=== PATIENT | male | born 2000 | race African-American/Black ===

== ENCOUNTER 2020-06-09 16:23 | Emergency (ER) | payer BC, SELFPAY ==
[2020-06-09 16:33] VITALS: BP 117/56; PULSE 82; RESP 16; TEMP 36.8; O2SAT 99
--- NOTE | 2020-06-09 17:02 | ED.GENADULT ---
HPI - General Adult General Chief complaint: Upper Respiratory Infection Stated complaint: SORE THROAT Time Seen by Provider: 06/09/20 17:02 Source: patient and RN notes reviewed Mode of arrival: ambulatory Limitations: no limitations History of Present Illness HPI narrative: 20-year-old -Nepalese male presents with complaints of sore throat, nasal congestion, fatigue, tongue feeling weird, and intermittent shortness of breath for the past 2 days. Ashkan reports that sore throat has been going on since with increased symptoms with redness, swelling, and pain today. Theraflu and cough drops without relief. No high fevers, drooling, neck or throat swelling. Pain is bilateral. Hurts to swallow. Exacerbation factors consist of eating and drinking. No rhinorrhea. Nasal congestion. No voice change. No nausea, vomiting, or abdominal pain. Tolerating liquids well. Denies chills, difficulty swallowing, jaw pain, dental pain, facial pain, foreign body sensation, and rash. Remains active. The patient reports he have not been diagnosed with COVID-19. The patient reports he is not waiting for the results of a COVID-19 lab test. The patient reports he do not have fever, weakness, or fatigue. The patient reports he do not have a new or worsening cough. Denies chest pain. The patient reports he do not have any rhinorrhea, congestion, loss of taste, and diarrhea. Denies recent traveling. Denies concerns for COVID-19 or exposures been home with limited outdoor exposure except for essential household needs and return home. At this time, patient is not suspected of having COVID-19. Some parts of this dictation were generated by voice recognition software and may contain typographical and/or grammatical inaccuracies. Related Data Allergies Allergy/AdvReac Type Severity Reaction Status Date / Time Penicillins Allergy Unknown BLISTERY Verified 06/09/20 16:31 RASH Review of Systems Review of Systems: Narrative: CONSTITUTIONAL: Denies fever, chills, sweats. Complains of fatigue. EYES: Denies visual changes, redness, discharge. ENT: Denies rhinorrhea, otalgia. Complains of sore throat, tongue feeling weird, congestion. CARDIOVASCULAR: Denies chest pain, palpitations, edema. RESPIRATORY: Denies wheezing, cough. Complains of intermittent dyspnea. GASTROINTESTINAL: Denies abdominal pain, nausea, vomiting, diarrhea. SKIN: Denies rash or itching. MUSCULOSKELETAL: Denies acute back pain, joint pain, or myalgia. NEUROLOGIC: Denies numbness or focal weakness. PSYCHIATRIC: Denies anxiety or depression. All systems reviewed & are unremarkable except as noted in HPI and below. [facility] Past Medical History Medical History (Updated 06/10/20 @ 00:00 by Corazon Streeter) No significant family history Surgical History Surgical History (Updated 06/09/20 @ 17:14 by BHARTI Loo) No significant past surgical history Family History Family History (Updated 06/09/20 @ 17:15 by BHARTI Loo) Father Alive and well Mother Alive and well Social History Social History (Updated 06/09/20 @ 17:15 by BHARTI Loo) Smoking status: Never smoker Tobacco type: cigarettes Second hand tobacco smoke exposure: No Alcohol intake: former Substance use: never Gender identity (if verbalized by the patient): Male Comments At time of signature, agree with nurse past medical, surgical, social, and family history. There is no relevant family history pertinent to the presenting complaint. Exam Narrative: Exam Narrative: GENERAL: This is a well-nourished, well-developed patient, in no apparent distress. Speaks in full sentences without deficits and ambulates with steady gait without dyspnea. HEAD: normocephalic, atraumatic. EYES: PERRL. Sclera clear/white. Vision is grossly intact. EARS: External ears normal, auditory canals clear and without drainage, TMs normal without perforation. Hearing grossly
== END 2020-06-09 17:30 | disposition home or self-care (01) ==
PROVIDERS: Emergency Provider Nurse Practitioner Family; PCP Student in an Organized Health Care Education/Training Program
DX: J02.9 Acute pharyngitis, unspecified (principal); Z20.828 Contact with and (suspected) exposure to other viral communicable diseases
CPT/HCPCS: 87081; 87804; 87880; 99203; G0463

== ENCOUNTER 2022-05-31 10:12 | Emergency (ER) | payer BC, SELFPAY ==
[2022-05-31 10:25] VITALS: BP 117/65; PULSE 93; RESP 16; TEMP 37.6; O2SAT 98
--- NOTE | 2022-05-31 10:43 | ED.URI ---
HPI - URI/Sore Throat General Chief Complaint: Upper Respiratory Infection Stated Complaint: SWOLLEN THROAT Time Seen by Provider: 05/31/22 10:44 History of Present Illness HPI Narrative: 08/30/2019 presented for complaint of sore throat, onset yesterday. Endorses pain is worse with eating. He also endorses he had an outbreak of cold sores all over his lips 2 days ago. He has been applying alcohol, they are now scabbing. Endorses he is able to speak, swallow secretions, and denies shortness breath or wheezing. Denies cough, nausea, vomiting, diarrhea, fever chills. Denies recent illness. Denies sick contacts. Related Data Allergies Allergy/AdvReac Type Severity Reaction Status Date / Time Penicillins Allergy Unknown BLISTERY Verified 05/31/22 10:21 RASH Review of Systems Review of Systems: CONSTITUTIONAL: Denies body aches, fever, chills, or sweats. EYES: Denies visual changes, redness, or discharge. ENT: Denies rhinorrhea, congestion, or otalgia. CARDIOVASCULAR: Denies chest pain, palpitations, or edema. RESPIRATORY: Denies dyspnea. GASTROINTESTINAL: Denies abdominal pain, nausea, vomiting, or diarrhea. MUSCULOSKELETAL: Denies back pain, joint pain, or myalgia. NEUROLOGIC: Denies headache PMFSH Past Medical History Medical History No significant family history Surgical History Surgical History No significant past surgical history Family History Family History Father Alive and well Mother Alive and well Social History Social History Smoking status: Never smoker Tobacco type: cigarettes Second hand tobacco smoke exposure: No Alcohol intake: former Substance use: never Gender identity (if verbalized by the patient): Male Sexual Orientation (if Verbalized by the Patient): Straight or Heterosexual Exam Narrative: GENERAL: Ill-appearing, no acute distress. EYES: conjunctivae clear ENT: Mucous membranes moist. TMs pearly duque with normal light reflex bilaterally; no tragal tenderness. Oropharynx erythematous without lesions. Tonsils enlarged 3+ without exudate. No drooling, no hoarseness, no trismus, uvula midline. No tripod positioning, hot potato voice, or soft palate swelling. 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 No lymphadenopathy CHEST: Clear to auscultation, breath sounds equal. No respiratory distress, speaks in full sentences. HEART: Regular rate and rhythm. No murmur heard. SKIN: Warm, dry, no rash. NEURO: Alert and oriented x3. Course Course Emergency Course: Patient is aware of diagnosis, understands and agrees to treatment plan. Anticipatory guidance given. Patient agrees to follow-up as directed and is aware of reasons to seek care at the emergency department. Portions of this record may have been created with voice recognition software Level of Care: Express Care Visit Vital Signs Vital signs: Vital Signs Temperature 99.6 F 05/31/22 10:25 Pulse Rate 93 05/31/22 10:25 Respiratory Rate 16 05/31/22 10:25 Blood Pressure 117/65 05/31/22 10:25 Pulse Oximetry 98 05/31/22 10:25 Temperature 99.6 F 05/31/22 10:25 Pulse Rate 93 05/31/22 10:25 Respiratory Rate 16 05/31/22 10:25 Blood Pressure 117/65 05/31/22 10:25 Pulse Oximetry 98 05/31/22 10:25 MDM - URI/Sore Throat MDM Narrative Medical decision making narrative: strep result reviewed with pt. will treat based on PE. PCN allergy. Advise supportive treatments and signs and symptoms to go to the ER. Patient is appropriate for outpatient treatment and follow-up. Differential Diagnosis Differential diagnosis: Likely upper respiratory infection, viral infection and pharyngitis
== END 2022-05-31 11:05 | disposition home or self-care (01) ==
PROVIDERS: Emergency Provider Nurse Practitioner Family
DX: J02.9 Acute pharyngitis, unspecified (principal); B00.1 Herpesviral vesicular dermatitis
CPT/HCPCS: 87081; 87880; 99213; G0463